=== PATIENT | male | born 1950 | race Caucasian/White ===

== ENCOUNTER → 2024-09-15 11:01 | Outpatient (REF) | payer MEDICARE, OTHER, SELFPAY | LOC: RCS 11:01 | PROVIDERS: ATTENDING PHYSICIAN Nurse Practitioner; FAMILY PHYSICIAN Family Medicine | DX: R00.2 Palpitations (principal); I10 Essential (primary) hypertension; E78.00 Pure hypercholesterolemia, unspecified; R01.1 Cardiac murmur, unspecified | CPT/HCPCS: 93306 ==